=== PATIENT | male | born 1975 | race Caucasian/White ===

== ENCOUNTER 2021-06-05 15:29 | Emergency (ER) | payer OTHER, SELFPAY ==
--- NOTE | ~2021-06-05 | XR_ITS ---
EXAMINATION: XR abdomen/kub 1V EXAM DATE: 06/05/2021 15:53 INDICATION: Abdomen pain/LLQ pain x 3 days. TECHNIQUE: Frontal projection(s) of the abdomen for interpretation. There is no prior study for christal harry. FINDINGS: There is expected amount of colonic stool and gas. No small bowel dilation, nonobstructiv e bowel gas pattern. There are no suspicious calcifications identified. There is no organomegaly suspected. The bones are unremarkable. IMPRESSION: Unremarkable abdomen x-ray exam. Reviewed, dictated and finalized at location B.
[2021-06-05 15:41] VITALS: BP 138/87; PULSE 75; RESP 18; TEMP 37; O2SAT 99
--- NOTE | 2021-06-05 15:46 | ED.ABDPAIN ---
HPI - Abdominal Pain General Chief Complaint: Abdominal Pain Stated Complaint: low abd pain Time Seen by Provider: 06/05/21 16:04 Source: patient and RN notes reviewed Mode of arrival: ambulatory Limitations: no limitations History of Present Illness HPI narrative: 45 old male presents concern for left lower quadrant abdominal pain and no bowel movement for 3 days. Reports symptoms started approximately 3 days ago with intermittent sharp left lower abdominal pain. Reports he normally has 1-2 bowel movements daily. Reports he took milk of magnesia 2 days ago and today used a suppository with no subsequent bowel movement. He denies fever, general malaise. Reports decreased appetite. Denies vomiting. He reports no precipitating factors for pain, reports pain is intermittent and random. MD elicited complaint: abdominal pain Related Data Home Medications Medication Instructions Recorded Confirmed amlodipine 5 mg PO DAILY 06/05/21 06/05/21 lisinopril 40 mg PO DAILY 06/05/21 06/05/21 Allergies Allergy/AdvReac Type Severity Reaction Status Date / Time No Known Allergies Allergy Mild Verified 06/05/21 15:36 Review of Systems Review of Systems: Narrative: CONSTITUTIONAL: Denies malaise, chills, sweats, or fever. CARDIOVASCULAR: Denies chest pain, palpitations, or edema. RESPIRATORY: Denies cough or dyspnea. GASTROINTESTINAL: Reports left lower quadrant abdominal pain, decreased appetite, constipation. Denies nausea, vomiting, diarrhea, bloody, or mucous stools. GENITOURINARY: Denies dysuria or hematuria. Denies scrotal redness, swelling, pain, groinpain MUSCULOSKELETAL: Denies myalgia. All systems reviewed & are unremarkable except as noted in HPI and below PMFSH Social History Social History (System 05/29/20 @ 10:24 by Meghan Suarez) Gender identity (if verbalized by the patient): Male Comments At time of signature, agree with nursing past medical, surgical, social and family history. There is no relevant family history pertinent to the presenting complaint Exam Narrative: Exam Narrative: GENERAL: Well-appearing, well-nourished, and in no acute distress. HEAD: Normocephalic, atraumatic. EYES: PERRLA, conjunctivae clear ENT: Nares clear. Mucous membranes moist. NECK: Supple. CHEST: Speaks in full sentences. No respiratory distress. HEART: Regular rate and rhythm. ABDOMEN: Soft, obese, nondistended. Left lower quadrant and periumbilical tenderness. No guarding, rebound tenderness, or rigid. No pulsatilla masses. Bowel sounds present in all four quadrants. No organomegaly. Negative Arvizu?s sign. No Supra public tenderness or distension. Good femoral pulses bilaterally. No hernia noted. No scars or surface trauma. SKIN: Warm, dry, no rash. NEURO: Alert and oriented x3. PSYCH: Normal mood and affect Course Course Emergency Course: Patient is aware of, understands and agrees to reasons to be seen in the emergency department. Patient agrees to proceed directly to the emergency department. Portions of this record may have been created with voice recognition software Vital Signs Vital signs: Vital Signs Temperature 98.6 F 06/05/21 15:41 Pulse Rate 75 06/05/21 15:41 Respiratory Rate 18 06/05/21 15:41 Blood Pressure 138/87 06/05/21 15:41 Pulse Oximetry 99 06/05/21 15:41 Temperature 98.6 F 06/05/21 15:41 Pulse Rate 75 06/05/21 15:41 Respiratory Rate 18 06/05/21 15:41 Blood Pressure 138/87 06/05/21 15:41 Pulse Oximetry 99 06/05/21 15:41 Reviewed. MDM - Abdominal Pain MDM Narrative Medical decision making narrative: Exam findings warrant further evaluation emergency department; patient is non-toxic appearing and is in no distress. Patient is appropriate for transfer via private vehicle Imaging Data My impression: Images reviewed, interpreted by radiologist, agree, see report. Radiologist's impression: EXAMINATION: XR abdomen/kub 1V EXAM DATE: 06/05/2021 15:
== END 2021-06-05 16:18 | disposition short-term general hospital (02) ==
PROVIDERS: Emergency Provider Nurse Practitioner; PCP Family Medicine
DX: R10.32 Left lower quadrant pain (principal); I10 Essential (primary) hypertension
CPT/HCPCS: 74018; 99213; G0463

== ENCOUNTER → 2021-11-26 09:16 | Outpatient (CLI) | payer OTHER, SELFPAY ==
[2021-11-27 03:58] LABS: SARS-CoV-2 RNA PCR Negative
== END ==
PROVIDERS: PCP Family Medicine; Visit Provider Physician Assistant
DX: Z20.822 Contact with and (suspected) exposure to COVID-19 (principal)
CPT/HCPCS: C9803; U0003; U0005

== ENCOUNTER 2023-01-14 14:37 | Emergency (ER) | payer OTHER, SELFPAY ==
[2023-01-14] VITALS (9 sets, daily range): BP systolic 147–168; BP diastolic 100–116; PULSE 57–72; RESP 12–23; TEMP 37.1; O2SAT 96–99
--- NOTE | ~2023-01-14 | XR_ITS ---
EXAMINATION: XR chest 2V DATE: 01/14/2023 15:15 INDICATION: Chest pain, history of right lung nodule TECHNIQUE: PA and lateral views of the chest are obtained. COMPARISON: CT, 08/11/2007 FINDINGS: The lungs are free of acute opacities. No pleural effusion or pneumothorax. The cardiomedia stinal silhouette is normal. A chronic 3 cm mass of the right middle lobe demonstrates slow increase in size since the 2017 comparison. There are bridging osteophytes at multiple levels in the spine, co nsistent with diffuse idiopathic skeletal hyperostosis (DISH). IMPRESSION: 1. No acute cardiopulmonary abnormality. 2. Right middle lobe mass with slow increase in size since the 2017 comparison. Reviewed, dictated and finalized at location B. 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
--- NOTE | 2023-01-14 14:38 | ECG_ITS ---
Measurements Intervals [place] Rate: 70 P: 61 NM: 184 QRS: 79 QRSD: 96 T: 55 QT: 390 QTc: 423 Interpretive Statements SINUS RHYTHM NO PREVIOUS ECG AVAILABLE FOR COMPARISON Electronically Signed On 01-14-2023 15:39:37 POLARITY TESTER by Stephen Betancourt M.D.
[2023-01-14 14:50] LABS: Basophils Absolute Auto 0.1 K/mm3 (0.0-0.1); Basophils Percent Auto 0.6 % (0.2-1.2); Eosinophils Absolute Auto 0.1 K/mm3 (0-0.3); Eosinophils Percent Auto 1.2 % (0-4.4); Hematocrit 48.5 % (42.0-52.0); Hemoglobin 16.3 g/dL (14.0-18.0); Immature Granulocyte Absolute 0.04 K/mm3 (0.00-0.031); Immature Granulocyte Percent A 0.5 % (0-0.5); Lymphocytes Absolute Auto 2.46 K/mm3 (0.9-3.2); Lymphocytes Percent Auto 28.4 % (18.3-44.2); Mean Corpuscular HGB Conc 33.6 g/dl (32-36); Mean Corpuscular Hemoglobin 30.2 pg (26-34); Mean Corpuscular Volume 89.8 fl (80-100); Mean Platelet Volume 9.8 fl (7.4-10.4); Monocytes Absolute Auto 0.9 K/mm3 (0.1-0.6); Monocytes Percent Auto 9.9 % (2.6-8.5); Neutrophils Absolute Auto 5.2 K/mm3 (1.3-6.7); Neutrophils Percent Auto 59.4 % (45.5-73.1); Platelet Count Result 215 k/mm3 (150-375); Red Cell Distribution Width 13.2 % (11.5-14.5); White Blood Count 8.7 K/mm3 (4.5-10.0)
[2023-01-14 15:00] LABS: INR 1.1; Partial Thromboplastin Time 28.6 SECONDS (22.3-36.8); Prothrombin Time 13.3 Seconds (11.1-14.7)
[2023-01-14 15:01] LABS: Alanine Aminotransferase 63 U/L (6-50); Alkaline Phosphatase 73 U/L (38-126); Anion Gap 7 mmol/L (8-16); Aspartate Amino Transferase 42 U/L (17-59); Bilirubin,Total 0.7 mg/dL (0.2-1.3); Blood Urea Nitrogen 16 mg/dL (9-20); Calcium 9.2 mg/dL (8.4-10.2); Carbon Dioxide 28 mmol/L (22-30); Chloride 105 mmol/L (98-107); Estimated CRCL calculation 121 ml/min; Estimated Glomerular Filt Rate > 60; Glucose 88 mg/dL (65-110); Lipase 75 U/L (23-300); Sodium 140 mmol/L (137-145)
[2023-01-14 15:13] LABS: Troponin I < 0.012 ng/mL (0.000-0.034)
--- NOTE | 2023-01-14 16:34 | PC.NURSE ---
pt presents to the er with c/o having chest pressure mid sternally for the past 3 days, pt also reports feeling dizzy the lat few days worsening yesterday. Pt reports he has HX of HTN and does not feel the medication works. Pt declines an IV at this time reports only wanting the heart labs and the ekg.
--- NOTE | 2023-01-14 16:49 | PC.NURSE ---
ASA not given per verbal order from Dr. Lr.
--- NOTE | 2023-01-14 16:50 | ED.CHESTPAIN ---
HPI - Chest Pain General Chief Complaint: Chest Pain Stated Complaint: chest tightness Time Seen by Provider: 01/14/23 16:27 History of Present Illness HPI narrative: Patient is a 47-year-old male who presents here with chest discomfort. Ongoing for last 3 to 5 days. Feels bloated and like she needs to belch. Discomfort in the upper abdomen into the chest. No radiation to the neck or back. No fevers chills or sweats. No association with exertion. Unsure if its associate with eating or drinking. He has tried no medications to see if it improves his discomfort. Patient also reports that he had little bit of dizziness when he went from lying to sitting 2 days ago but has not been reproduced today. Related Data Home Medications Medication Instructions Recorded Confirmed amlodipine 5 mg tablet 5 mg PO DAILY 06/05/21 06/05/21 lisinopril 40 mg tablet 40 mg PO DAILY 06/05/21 06/05/21 Allergies Allergy/AdvReac Type Severity Reaction Status Date / Time No Known Allergies Allergy Mild Verified 06/05/21 15:36 Review of Systems Review of Systems: All systems reviewed & are unremarkable except as noted in HPI and below Constitutional: Constitutional: Denies chills, Denies fatigue and Denies fever(s) ENT: Reports dizziness, Reports nasal congestion and Denies sore throat Cardiovascular: Cardiovascular: Reports chest pain, Denies rapid heart rate and Denies radiating jaw, neck or arm pain Respiratory: Respiratory: Denies cough and Denies dyspnea Gastrointestinal: Gastrointestinal: Reports abdominal pain, Reports bloating, Denies nausea and Denies vomiting Genitourinary: Genitourinary: Denies dysuria and Denies urinary frequency PMFSH Past Medical History Medical History (Updated 01/14/23 @ 17:48 by Charlie Lr MD) Hypertension Lung nodule Family History Family History (Updated 01/14/23 @ 17:49 by Charlie Lr MD) Mother Heart disease Social History Social History (System 05/29/20 @ 10:24 by Meghan Suarez) Gender identity (if verbalized by the patient): Male Exam Narrative: GENERAL: Well-appearing, well-nourished, and in no acute distress. HEAD: Normocephalic, atraumatic. ENT: Mucous membranes moist. CHEST: Clear to auscultation. No respiratory distress. HEART: Regular rate and rhythm. Normal peripheral pulses. ABDOMEN: Soft, nontender, nondistended. EXTREMITIES: Normal range of motion. No edema. SKIN: Warm, dry, no rash. NEURO: Alert and oriented x3. PSYCH: Normal mood and affect. Course Course Emergency Course: Patient resting comfortably. His 2/10 discomfort went away with GI cocktail. Heart score 2. Likely GI cause of discomfort and will start on PPI. Recommend follow-up with PCP for further evaluation and reevaluation of blood pressure medication. Vital Signs Vital signs: Vital Signs Temperature 98.7 F 01/14/23 14:47 Pulse Rate 72 01/14/23 14:47 Respiratory Rate 14 01/14/23 14:47 Blood Pressure 147/100 H 01/14/23 14:47 Pulse Oximetry 98 01/14/23 14:47 Oxygen Delivery Room Air 01/14/23 14:47 Temperature 98.7 F 01/14/23 14:47 Pulse Rate 65 01/14/23 17:10 Respiratory Rate 12 01/14/23 17:10 Blood Pressure 147/100 H 01/14/23 14:47 Pulse Oximetry 99 01/14/23 17:10 Oxygen Delivery Room Air 01/14/23 14:47 MDM - Chest Pain Lab Data 01/14/23 14:45 01/14/23 14:45 Labs: Lab Results 01/14/23 01/14/23 01/14/23 Range/Units 14:45 14:45 14:45 WBC 8.7 (4.5-10.0) K/mm3 RBC 5.40 (4.6-6.20) M/mm3 Hgb 16.3 (14.0-18.0) g/dL Hct 48.5 (42.0-52.0) % MCV 89.8 (80-100) fl MCH 30.2 (26-34) pg MCHC 33.6 (32-36) g/dl RDW 13.2 (11.5-14.5) % Plt Count 215 (150-375) k/mm3 MPV 9.8 (7.4-10.4) fl Immature Gran % (Auto) 0.5 (0-0.5) % Neut % (Auto) 59.4 (45.5-73.1) % Lymph % (Auto) 28.4 (18.3-44.2) % [place] % (Auto) 9.9 H (2.6-8.5) % Eos
[2023-01-14] MEDS: BELLADONNA ALK/PHENOB ELIX 10 ML, MAG HYDROX/ALUMINUM HYD/SIMETH 30 ML, LIDOCAINE HCL 2... PO (17:13)
== END 2023-01-14 18:21 | disposition home or self-care (01) ==
PROVIDERS: Emergency Provider Emergency Medicine; PCP Family Medicine
DX: R07.9 Chest pain, unspecified (principal); I10 Essential (primary) hypertension
CPT/HCPCS: 36415; 71046; 80053; 83690; 84484; 85025; 85610; 85730; 93005; 99284; A9270

== ENCOUNTER → 2023-02-13 17:04 | Outpatient (CLI) | payer OTHER, SELFPAY ==
--- NOTE | ~2023-02-13 | XR_ITS ---
XR hip RT min 2V 02/13/2023 17:17 Indication: Right hip pain Procedure: 2 views right hip Comparison: No prior studies for comparison. Findings: There is mild osteoarthritis of the right hip. Small loose body lateral to the joint space. No fracture or traumatic malalignment. No significant soft tissue abnormality. Impression: 1: Mild osteoarthritis of the right hip. Reviewed, dictated and finalized at location A. Impression: 1: Mild osteoarthritis of the right hip.
== END ==
PROVIDERS: PCP Family Medicine; Visit Provider Physician Assistant
DX: M16.11 Unilateral primary osteoarthritis, right hip (principal); M25.551 Pain in right hip
CPT/HCPCS: 73502

== ENCOUNTER 2024-02-03 07:14 | Outpatient (CLI) | payer OTHER, SELFPAY ==
--- NOTE | ~2024-02-03 | XR_ITS ---
EXAMINATION: XR_CERV2-3V_CR DATE: 02/03/2024 07:47 INDICATION: Right-sided neck pain. TECHNIQUE: 4 views of cervical spine including standing views were obtained. COMPARISON: None. FINDINGS: There is hypolordosis of cervical spine. There is 3 degrees levocurvature of cervical spine . Vertebral body heights are normal. There is mildly decreased disc height at C5-C6 and moderately de creased disc height at C6-C7. There is multilevel uncovertebral joint osteoarthritis, severe on the r ight at C5-C6 and on the left at C6-C7. There is multilevel mild to moderate facet joint osteoarthrit is. There is mild central canal stenosis at C5-C6 and C6-C7. No prevertebral soft tissue swelling. IMPRESSION: 1. Moderate cervical spondylosis. Reviewed, dictated and finalized at location E. EPRENEUR
--- NOTE | ~2024-02-03 | XR_ITS ---
EXAMINATION: XR thoracic spine 3V DATE: 02/03/2024 07:47 INDICATION: Thoracic back pain TECHNIQUE: AP, lateral and lateral swimmer's views of the thoracic spine were obtained. COMPARISON: None. FINDINGS: Bone alignment is normal. There is no fracture. There is mild loss of intervertebral disc s pace height at multiple levels in the thoracic spine. The vertebral body heights are maintained. Smal l degenerative osteophytes project from the anterior endplates of multiple vertebral bodies. IMPRESSION: 1. Moderate thoracic spondylosis without acute findings. Reviewed, dictated and finalized at location B. E MONITORING
== END 2024-02-03 07:15 ==
PROVIDERS: PCP Chiropractor Rehabilitation; Visit Provider Chiropractor Rehabilitation
DX: M54.6 Pain in thoracic spine (principal); M43.02 Spondylolysis, cervical region; M43.04 Spondylolysis, thoracic region
CPT/HCPCS: 72040; 72072